=== PATIENT | female | born 1990 | race Asian ===

== ENCOUNTER 2021-06-04 13:58 | Outpatient (CLI) | payer BC, OTHER ==
[2021-06-05 12:46] LABS: SARS-CoV-2 PCR by NAA Not Detected (NotDetected)
== END 2021-06-04 13:59 | disposition home or self-care (01) ==
LOC: CSHLAB 13:58
PROVIDERS: ATTEND Student in an Organized Health Care Education/Training Program
DX: Z20.822 Contact with and (suspected) exposure to COVID-19 (principal)
CPT/HCPCS: U0003; U0005